=== PATIENT | female | born 1990 | race Caucasian/White ===

== ENCOUNTER → 2017-08-06 | Outpatient (CLI) | payer OTHER | LOC: HPND 12:30 | PROVIDERS: ATTEND Obstetrics & Gynecology | DX: O24.912 Unspecified diabetes mellitus in pregnancy, second trimester (principal) | CPT/HCPCS: 76811 ==

== ENCOUNTER → 2017-09-03 | Outpatient (CLI) | payer OTHER | LOC: HPND 10:15 | PROVIDERS: ATTEND Obstetrics & Gynecology | DX: O24.112 Pre-existing type 2 diabetes mellitus, in pregnancy, second trimester (principal); O34.12 Maternal care for benign tumor of corpus uteri, second trimester | CPT/HCPCS: 76816; 76825; 76827; 93325 ==

== ENCOUNTER → 2017-10-06 | Outpatient (CLI) | payer OTHER | LOC: HPND 09:56 | PROVIDERS: ATTEND Obstetrics & Gynecology | DX: O24.112 Pre-existing type 2 diabetes mellitus, in pregnancy, second trimester (principal); O34.12 Maternal care for benign tumor of corpus uteri, second trimester; Z3A.00 Weeks of gestation of pregnancy not specified | CPT/HCPCS: 76816 ==

== ENCOUNTER → 2017-10-08 | Outpatient (CLI) | payer OTHER | LOC: HPND 09:00 | PROVIDERS: ATTEND Obstetrics & Gynecology | DX: O35.0XX0 Maternal care for (suspected) central nervous system malformation in fetus, not applicable or unspecified (principal); O24.112 Pre-existing type 2 diabetes mellitus, in pregnancy, second trimester; O99.212 Obesity complicating pregnancy, second trimester; O35.8XX0 Maternal care for other (suspected) fetal abnormality and damage, not applicable or unspecified | CPT/HCPCS: 76815 ==